=== PATIENT | female | born 1970 | race Caucasian/White ===

== ENCOUNTER 2017-01-19 21:57 | Emergency (ER) | payer MEDICAID ==
[2017-01-19 23:10] LABS: URINE APPEARANCE CLEAR; URINE BILIRUBIN NEGATIVE (NEGATIVE); URINE BLOOD NEGATIVE (NEGATIVE); URINE COLOR YELLOW; URINE GLUCOSE (UA) NEGATIVE (NEGATIVE); URINE KETONE NEGATIVE (NEGATIVE); URINE LEUKOCYTE ESTERASE NEGATIVE (NEGATIVE); URINE NITRITE NEGATIVE (NEGATIVE); URINE PROTEIN NEGATIVE (NEGATIVE); URINE UROBILINOGEN 0.2 E.U./dL (0.20 - 1.00)
[2017-01-19] MEDS ORDERED: KETOROLAC 30 MG/ML VIAL IVP ONE (23:28)
[2017-01-19] MEDS ORDERED: 0.9 % SODIUM CHLORIDE 1,000 ML BAG IV ONE (23:28)
[2017-01-19 23:53] LABS: BASO % 0.4 % (0-6); EOS % 1.7 % (0-6); GRAN % 60.4 % (47-80); HEMATOCRIT 40.3 % (35.0-47.0); HEMOGLOBIN 12.7 gm/dl (11.6-16.0); LYMPH % 32.2 % (16-45); MEAN CELL VOLUME 86.9 fl (81-97); MEAN CORPUSCULAR HEMOGLOBIN 27.4 pg (27-33); MEAN CORPUSCULAR HGB CONC 31.5 g/dl (32-36); MEAN PLATELET VOLUME 10.7 fl (7.4-10.4); MONO % 5.3 % (0-9); PLATELET COUNT 293 K/uL (130-400); RED BLOOD COUNT 4.64 M/uL (3.80-5.40); RED CELL DISTRIBUTION WIDTH 17.9 % (11.5-14.5); WHITE BLOOD COUNT W/O DIFF 11.2 K/uL (4.2-12.2)
[2017-01-20 00:03] LABS: ALB/GLOB RATIO 1.4 (1.1-1.8); ALBUMIN 4.2 gm/dL (3.5-5.0); ALKALINE PHOSPHATASE 85 U/L (38-126); ALT/SGPT 20 U/L (9-52); ANION GAP 9.6 (7-16); AST/SGOT 13 U/L (14-36); BILIRUBIN,TOTAL 0.25 mg/dL (0.2-1.3); BLOOD UREA NITROGEN 9 mg/dL (7-17); CARBON DIOXIDE 25.4 mmol/L (22-30); CREATININE 0.6 mg/dL (0.52-1.04); EST GLOMERULAR FILTRATION RATE > 60 ml/min; GLUCOSE,RANDOM 96 mg/dL (70-110); TOTAL PROTEIN 7.1 gm/dL (6.3-8.2)
[2017-01-20] MEDS ORDERED: HYDROMORPHONE HCL 1 MG/ML CPJ IVP ONE (00:28)
--- NOTE | 2017-01-20 00:45 | Emergency Department Record ---
History of Present Illness - General Chief complaint: Flank Pain Stated complaint: FLANK PAIN Time Seen by Provider: 01/19/17 23:03 Source: Patient Mode of Arrival: Ambulatory Limitations: No limitations - History of Present Illness Initial comments: pt c/o rlq abd pain. she thinks it might be a kidney stone as she has had them before. she has also been told that she has 'intermittant appendicitis' in the past. Onset/Timin -: Hour(s) Radiation: R flank, RLQ, Other Severity: Severe Severity scale (1-10): 8 Quality: Sharp Consistency: Constant Improves with: Other Worsens with: Movement Patient : No Associated Symptoms: Abdominal pain - Related Data Previous Rx's Medication Instructions Recorded Hydrocodone/Acetaminophen [[place] 1 tab PO Q6H PRN #14 tab 01/20/17 5mg/325mg] Allergies Allergy/AdvReac Type Severity Reaction Status Date / Time aspirin AdvReac BRUISING Verified 01/19/17 22:48 Travel Screening - Travel/Exposure Within Last 30 Days Have you traveled within the last 30 days?: No - Travel/Exposure Within Last Year Have you traveled outside the [place] in the last year?: No - Additonal Travel Details Have you been exposed to anyone with a communicable illness?: No Review of Systems Reviewed: No additional complaints except as noted below Constitutional: Reports: As per HPI. Denies: Chills, Fever, Malaise, Night sweats, Weakness, Weight change Eyes: Reports: As per HPI. Denies: Eye discharge, Eye pain, Photophobia, Vision change ENT: Reports: As per HPI. Denies: Congestion, Dental pain, Ear pain, Epistaxis , Hearing loss, Throat pain Respiratory: Reports: As per HPI. Denies: Cough, Dyspnea, Hemoptysis, Stridor, Wheezes Cardiovascular: Reports: As per HPI. Denies: Arrhythmia, Chest pain, Dyspnea on exertion, Edema, Murmurs, Orthopnea, Palpitations, Paroxysmal nocturnal dyspnea, Rheumatic Fever, Syncope Endocrine: Reports: As per HPI. Denies: Fatigue, Heat or cold intolerance, Polydipsia, Polyuria Gastrointestinal: Reports: As per HPI. Denies: Abdominal pain, Constipation, Diarrhea, Hematemesis, Hematochezia, Melena, Nausea, Vomiting Genitourinary: Reports: As per HPI. Denies: Abnormal menses, Discharge, Dyspareunia, Dysuria, Frequency, Hematuria, Incontinence, Retention, Urgency Musculoskeletal: Reports: As per HPI. Denies: Arthralgia, Back pain, Gout, Joint swelling, Myalgia, Neck pain Skin: Reports: As per HPI. Denies: Bruising, Change in color, Change in hair/ nails, Lesions, Pruritus, Rash Neurological: Reports: As per HPI. Denies: Abnormal gait, Confusion, Headache, Numbness, Paresthesias, Seizure, Tingling, Tremors, Vertigo, Weakness Psychiatric: Reports: As per HPI. Denies: Anxiety, Auditory hallucinations, Depression, Homicidal thoughts, Suicidal thoughts, Visual hallucinations Hematological/Lymphatic: Reports: As per HPI. Denies: Anemia, Blood Clots, Easy bleeding, Easy bruising, Swollen glands Past Medical History - SOCIAL HISTORY Smoking Status: Light tobacco smoker (<10/day) Alcohol Use: Rare Drug Use: None - RESPIRATORY Hx Respiratory Disorders: No - CARDIOVASCULAR Hx Cardio Disorders: No - NEURO Hx Neuro Disorders: No - GI Hx GI Disorders: No - Hx Genitourinary Disorders: Yes Hx Kidney Stones: Yes (stents placed) - ENDOCRINE Hx Endocrine Disorders: No - MUSCULOSKELETAL Hx Musculoskeletal Disorders: No - PSYCH Hx Psych Problems: No - HEMATOLOGY/ONCOLOGY Hx Hematology/Oncology Disorders: No Family Medical History Any Significant Family History?: No Physical Exam - General General Appearance: Alert, Oriented x3, Cooperative, Mild distress - Head Head exam: Normal inspection - Eye Eye exam: Normal appearance, PERRL, EOMI Pupils: Normal accommodation - ENT ENT exam: Normal exam, Mucous membranes moist, Normal external ear exam, Normal orophraynx Ear exam: Normal external inspection. negative: External canal tenderness Nasal Exam: Normal inspection. negative: Discharge, Sinus tenderness Mouth exam: Normal external inspection, Tongue normal Teeth exam: Normal inspection. negative: Dental caries Throat exam: Normal inspection. negative: Tonsillar erythema, Tonsillar exudate - Neck Neck exam: Normal inspection, Full ROM. negative: Tenderness - Respiratory Respiratory exam: Normal lung sounds bilaterally. negative: Respiratory distress - Cardiovascular Cardiovascular Exam: Regular rate, Normal rhythm, Normal heart sounds - GI/Abdominal GI/Abdominal exam: Soft, Normal bowel sounds, Tenderness (rlq) - Rectal Rectal exam: Deferred - exam: Deferred - Extremities Extremities exam: Normal inspection, Full ROM, Normal capillary refill. negative: Tenderness - Back Back exam: Reports: Normal inspection, Full ROM. Denies: Muscle spasm, Rash noted, Tenderness - Neurological Neurological exam: Alert, CN II-XII intact, Normal gait, Oriented X3 - Psychiatric Psychiatric exam: Normal affect, Normal mood - Skin Skin exam: Dry, Intact, Normal color, Warm Course Vital Signs 01/19/17 22:49 Temperature 97.5 F L Pulse Rate 69 Respiratory 20 Rate Blood Pressure 156/81 Pulse Ox 98 - Reevaluation(s) Reevaluation #1: 01/20/17 01:10 pt feels better Medical Decision Making - Lab Data Result diagrams: 01/19/17 23:45 01/19/17 23:45 Lab Results 01/19/17 01/19/17 01/19/17 Range/Units 23:11 23:28 23:45 WBC 11.2 (4.2-12.2) K/uL RBC 4.64 (3.80-5.40) M/uL Hgb 12.7 (11.6-16.0) gm/dl Hct 40.3 (35.0-47.0) % MCV 86.9 (81-97) fl MCH 27.4 (27-33) pg MCHC 31.5 L (32-36) g/dl RDW 17.9 H (11.5-14.5) % Plt Count 293 (130-400) K/uL MPV 10.7 H (7.4-10.4) fl Gran % 60.4 (47-80) % Lymphocytes % 32.2 (16-45) % Monocytes % 5.3 (0-9) % Eosinophils % 1.7 (0-6) % Basophils % 0.4 (0-6) % Sodium (136-145) mmol/L Potassium (3.5-5.1) mmol/L Chloride (98-107) mmol/L Carbon Dioxide (22-30) mmol/L Anion Gap (7-16) BUN (7-17) mg/dL Creatinine (0.52-1.04) mg/dL Estimated GFR ml/min Random Glucose (70-110) mg/dL Calcium (8.5-10.1) mg/dL Total Bilirubin (0.2-1.3) mg/dL AST (14-36) U/L ALT (9-52) U/L Alkaline Phosphatase (38-126) U/L Total Protein (6.3-8.2) gm/dL Albumin (3.5-5.0) gm/dL Globulin (1.4-4.8) gm/dL Albumin/Globulin Ratio (1.1-1.8) Urine Color Yellow Cancelled Urine Appearance Clear Cancelled Urine pH 7.5 Cancelled (5.0-8.0) Ur Specific [place] 1.015 Cancelled (1.002-1.030) Urine Protein Negative Cancelled (NEGATIVE) Urine Glucose (UA) Negative Cancelled (NEGATIVE) Urine Clinitest Cancelled Urine Ketones Negative Cancelled (NEGATIVE) Urine Blood Negative Cancelled (NEGATIVE) Urine Nitrite Negative Cancelled (NEGATIVE) Urine Bilirubin Negative Cancelled (NEGATIVE) Urine Ictotest Cancelled Prot Sulfosalicylic Acd Cancelled Urine Urobilinogen 0.2 Cancelled (0.20 - 1.00) E.U./dL Ur Leukocyte Esterase Negative Cancelled (NEGATIVE) 01/19/17 Range/Units 23:45 WBC (4.2-12.2) K/uL RBC (3.80-5.40) M/uL Hgb (11.6-16.0) gm/dl Hct (35.0-47.0) % MCV (81-97) fl MCH (27-33) pg MCHC (32-36) g/dl RDW (11.5-14.5) % Plt Count (130-400) K/uL MPV (7.4-10.4) fl Gran % (47-80) % Lymphocytes % (16-45) % Monocytes % (0-9) % Eosinophils % (0-6) % Basophils % (0-6) % Sodium 140 (136-145) mmol/L Potassium 3.6 (3.5-5.1) mmol/L Chloride 105 (98-107) mmol/L Carbon Dioxide 25.4 (22-30) mmol/L Anion Gap 9.6 (7-16) BUN 9 (7-17) mg/dL Creatinine 0.6 (0.52-1.04) mg/dL Estimated GFR > 60 ml/min Random Glucose 96 (70-110) mg/dL Calcium 8.8 (8.5-10.1) mg/dL Total Bilirubin 0.25 (0.2-1.3) mg/dL AST 13 L (14-36) U/L ALT 20 (9-52) U/L Alkaline Phosphatase 85 (38-126) U/L Total Protein 7.1 (6.3-8.2) gm/dL Albumin 4.2 (3.5-5.0) gm/dL Globulin 2.9 (1.4-4.8) gm/dL Albumin/Globulin Ratio 1.4 (1.1-1.8) Urine Color Urine Appearance Urine pH (5.0-8.0) Ur Specific [place] (1.002-1.030) Urine Protein (NEGATIVE) Urine Glucose (UA) (NEGATIVE) Urine Clinitest Urine Ketones (NEGATIVE) Urine Blood (NEGATIVE) Urine Nitrite (NEGATIVE) Urine Bilirubin (NEGATIVE) Urine Ictotest Prot Sulfosalicylic Acd Urine Urobilinogen (0.20 - 1.00) E.U./dL Ur Leukocyte Esterase (NEGATIVE) Disposition Disposition: Discharge Clinical Impression: Renal lithiasis Disposition: Home, Self-Care Condition: (1) Good Instructions: Kidney Stones (ED) Additional Instructions: recheck in 24 hours if still having right lower abdominal pain. follow up with urologist. return sooner if worse Prescriptions: Hydrocodone/Acetaminophen [[place] 5mg/325mg] 1 tab PO Q6H PRN #14 tab PRN Reason: Pain - General Forms: Patient Portal Access
== END 2017-01-20 01:35 | disposition home or self-care (01) ==
LOC: ER 21:57
DX: N20.1 Calculus of ureter (principal); Z87.442 Personal history of urinary calculi
CPT/HCPCS: 99284 ×2; 96374; 96375; 85025; 80053; 81003; 74176; J1885; J1170; J7030

== ENCOUNTER 2017-01-26 18:47 | Emergency (ER) | payer MEDICAID ==
[2017-01-26 19:22] LABS: URINE APPEARANCE CLEAR; URINE BILIRUBIN NEGATIVE (NEGATIVE); URINE BLOOD NEGATIVE (NEGATIVE); URINE COLOR YELLOW; URINE GLUCOSE (UA) NEGATIVE (NEGATIVE); URINE KETONE NEGATIVE (NEGATIVE); URINE LEUKOCYTE ESTERASE NEGATIVE (NEGATIVE); URINE NITRITE NEGATIVE (NEGATIVE); URINE PROTEIN NEGATIVE (NEGATIVE); URINE UROBILINOGEN 0.2 E.U./dL (0.20 - 1.00)
--- NOTE | 2017-01-26 19:24 | Emergency Department Record ---
History of Present Illness - General Chief complaint: Flank Pain Stated complaint: SIDE PAIN Time Seen by Provider: 01/26/17 19:14 Source: Patient Mode of Arrival: Ambulatory Limitations: No limitations - History of Present Illness Initial comments: 46 yo female presents with right sided pain for over one week. She states the pain is ONLY on the right. It is upper right quadrant. She has had her gallbladder removed already. No fever. No rash. No cough or chest pain. The pain radiates to the right flank. She was told she had a LEFT ureteral stone on 01/19/17. No pain on the left. No diarrhea. The gallbladder is her only surgery. No PCP. MD Complaint: Other (right side pain) -: Days(s) (8-10) Location: Other (RUQ) Severity: Moderate Quality: Aching, Sharp Consistency: Constant Improves with: None Worsens with: Other (Moving around) Associated Symptoms: Abdominal pain - Related Data Previous Rx's Medication Instructions Recorded Hydrocodone/Acetaminophen [[place] 1 tab PO Q6H PRN #14 tab 01/20/17 5mg/325mg] Hydrocodone/Acetaminophen [[place] 1 tab PO BID PRN #15 tab 01/26/17 7.5mg/325mg] Tamsulosin HCl [Flomax] 0.4 mg PO DAILY #10 cap.er.24h 01/26/17 Allergies Allergy/AdvReac Type Severity Reaction Status Date / Time aspirin AdvReac BRUISING Verified 01/19/17 22:48 Review of Systems Constitutional: Denies: Chills, Fever, Malaise, Weakness Eyes: Denies: Eye discharge, Eye pain ENT: Denies: Congestion, Throat pain Respiratory: Denies: Cough Cardiovascular: Denies: Chest pain, Palpitations, Syncope Endocrine: Denies: Fatigue Gastrointestinal: Reports: As per HPI, Abdominal pain. Denies: Diarrhea, Vomiting Genitourinary: Reports: Hematuria. Denies: Dyspareunia, Dysuria Musculoskeletal: Reports: Back pain. Denies: Arthralgia, Myalgia, Neck pain Skin: Denies: Bruising, Change in color, Rash Neurological: Denies: Confusion, Headache Psychiatric: Denies: Anxiety Hematological/Lymphatic: Denies: Blood Clots, Easy bleeding, Easy bruising, Swollen glands Past Medical History - SOCIAL HISTORY Smoking Status: Light tobacco smoker (<10/day) Drug Use: None - RESPIRATORY Hx Respiratory Disorders: No - CARDIOVASCULAR Hx Cardio Disorders: No - NEURO Hx Neuro Disorders: No - GI Hx GI Disorders: No - Hx Genitourinary Disorders: Yes Hx Kidney Stones: Yes (stents placed) - ENDOCRINE Hx Endocrine Disorders: No - MUSCULOSKELETAL Hx Musculoskeletal Disorders: No - PSYCH Hx Psych Problems: No - HEMATOLOGY/ONCOLOGY Hx Hematology/Oncology Disorders: No Physical Exam - General General Appearance: Alert, Oriented x3, Cooperative, No acute distress Limitations: No limitations - Head Head exam: Atraumatic, Normal inspection - Eye Eye exam: Normal appearance, PERRL. negative: Conjunctival injection, Periorbital swelling - ENT ENT exam: Normal exam Ear exam: Normal external inspection Nasal Exam: Normal inspection Mouth exam: Normal external inspection Teeth exam: Normal inspection Throat exam: Normal inspection - Neck Neck exam: Normal inspection, Full ROM. negative: Tenderness - Respiratory Respiratory exam: Normal lung sounds bilaterally. negative: Respiratory distress - Cardiovascular Cardiovascular Exam: Regular rate, Normal rhythm, Normal heart sounds - GI/Abdominal GI/Abdominal exam: Soft, Tenderness (tender right flank, RUQ, soft, no distension) - Rectal Rectal exam: Deferred - exam: Deferred - Extremities Extremities exam: Normal inspection, Full ROM, Normal capillary refill. negative: Tenderness - Back Back exam: Reports: Normal inspection, Full ROM. Denies: Muscle spasm, Rash noted, Tenderness - Neurological Neurological exam: Alert, Normal gait, Oriented X3 - Psychiatric Psychiatric exam: Normal affect, Normal mood - Skin Skin exam: Dry, Intact, Normal color, Warm Course - Reevaluation(s) Reevaluation #1: EMR reviewed. CT reviewed form 01/19. 5mm LEFT ureteral stone. Normal appendix 01/26/17 19:26 Reevaluation #2: The CBC and UA were reviewed. NO acute changes. MAPS reviewed. One prior Narcotic filled. 01/26/17 19:45 01/26/17 19:48 Reevaluation #3: KUB reviewed 5mm calcification persists No other changes. She will be referred for urology 01/26/17 20:10 01/26/17 20:10 - Consultations Consultation #1: The patient's pain is on the right. She does not have a gallbladder. She had a negative CT in the last one week. Her pain is only on the one side but she has a distal left stone still on the KUB. She will be provided analgesia, referred for primary care and urology. Her labs were stable or slightly improved. No UTI. Medical Decision Making - Lab Data Result diagrams: 01/26/17 19:25 01/26/17 19:25 Disposition Disposition: Discharge Clinical Impression: Right upper quadrant pain, Renal lithiasis Disposition: Home, Self-Care Condition: (1) Good Instructions: Flank Pain (ED), Kidney Stones (ED) Additional Instructions: Call tomorrow for the specialty clinic follow up with urology for your kidney stone Call tomorrow for a family doctor appointment at [facility] Return if you have fever, vomiting or concerns Prescriptions: Tamsulosin HCl [Flomax] 0.4 mg PO DAILY #10 cap.er.24h Hydrocodone/Acetaminophen [[place] 7.5mg/325mg] 1 tab PO BID PRN #15 tab PRN Reason: Pain - General Referrals: WOLF BARNEY M.D. [MEDICAL DOCTOR] - JETT CUEVAS M.D. [MEDICAL DOCTOR] - [facility] Specialty Clinics [Provider Group] Forms: Patient Portal Access Time of Disposition: 20:13
[2017-01-26] MEDS ORDERED: KETOROLAC 30 MG/ML VIAL IVP ONE (19:30)
[2017-01-26] MEDS ORDERED: DIAZEPAM 5 MG/1 ML TUBX IVP ONE (19:30)
[2017-01-26 19:43] LABS: BASO % 0.4 % (0-6); EOS % 1.3 % (0-6); GRAN % 60.9 % (47-80); HEMATOCRIT 41.7 % (35.0-47.0); HEMOGLOBIN 13.3 gm/dl (11.6-16.0); LYMPH % 32.6 % (16-45); MEAN CELL VOLUME 85.5 fl (81-97); MEAN CORPUSCULAR HEMOGLOBIN 27.3 pg (27-33); MEAN CORPUSCULAR HGB CONC 31.9 g/dl (32-36); MEAN PLATELET VOLUME 10.7 fl (7.4-10.4); MONO % 4.8 % (0-9); PLATELET COUNT 289 K/uL (130-400); RED BLOOD COUNT 4.88 M/uL (3.80-5.40); RED CELL DISTRIBUTION WIDTH 17.4 % (11.5-14.5)
[2017-01-26 19:52] LABS: ALB/GLOB RATIO 1.5 (1.1-1.8); ALBUMIN 4.5 gm/dL (3.5-5.0); ALKALINE PHOSPHATASE 82 U/L (38-126); ALT/SGPT 19 U/L (9-52); ANION GAP 10.4 (7-16); AST/SGOT 16 U/L (14-36); BILIRUBIN,TOTAL 0.38 mg/dL (0.2-1.3); BLOOD UREA NITROGEN 8 mg/dL (7-17); CARBON DIOXIDE 22.6 mmol/L (22-30); CREATININE 0.6 mg/dL (0.52-1.04); EST GLOMERULAR FILTRATION RATE > 60 ml/min; GLUCOSE,RANDOM 85 mg/dL (70-110); TOTAL PROTEIN 7.5 gm/dL (6.3-8.2)
== END 2017-01-26 20:28 | disposition home or self-care (01) ==
LOC: ER 18:47
DX: N20.0 Calculus of kidney (principal); R10.11 Right upper quadrant pain; Z87.442 Personal history of urinary calculi
CPT/HCPCS: 99284 ×2; 96374; 96375; 85025; 80053; 81003; 74000; J1885; J3360

== ENCOUNTER 2017-02-10 23:04 | Emergency (ER) | payer MEDICAID ==
[2017-02-10] MEDS ORDERED: KETOROLAC 30 MG/ML VIAL IVP ONE (23:29)
[2017-02-10] MEDS ORDERED: 0.9 % SODIUM CHLORIDE 1000ML 500 ML IV SCH (23:30)
[2017-02-10 23:35] LABS: BASO % 0.6 % (0-6); EOS % 1.9 % (0-6); GRAN % 57.4 % (47-80); HEMATOCRIT 42.2 % (35.0-47.0); HEMOGLOBIN 13.9 gm/dl (11.6-16.0); LYMPH % 36.1 % (16-45); MEAN CELL VOLUME 87.2 fl (81-97); MEAN CORPUSCULAR HEMOGLOBIN 28.7 pg (27-33); MEAN CORPUSCULAR HGB CONC 32.9 g/dl (32-36); MEAN PLATELET VOLUME 10.7 fl (7.4-10.4); PLATELET COUNT 332 K/uL (130-400); RED BLOOD COUNT 4.84 M/uL (3.80-5.40); WHITE BLOOD COUNT W/O DIFF 10.9 K/uL (4.2-12.2)
--- NOTE | 2017-02-10 23:35 | Emergency Department Record ---
History of Present Illness - General Chief complaint: Flank Pain Stated complaint: FLANK PAIN Time Seen by Provider: 02/10/17 23:05 Source: Patient Mode of Arrival: Ambulatory Limitations: No limitations - History of Present Illness Initial comments: 46 yo female returns to ED for evaluation of bilateral flank pain that has been relatively constant for since being evaluated on 01/26 for flank pain symptoms. Patient reports previous sympotms related to kidney stones. Patient denies fevers, chills, nausea, or vomiting symptoms. Patient reports that she was referred to Dr. Begum but was unable to see him due to her insurance. MD Complaint: Other (flank pain) Onset/Timin -: Week(s) Severity: Moderate Severity scale (1-10): 8 Quality: Other Consistency: Constant Improves with: None Worsens with: Movement, Urination LMP Date: 01/21/17 Gestational Age (wks) based on LMP: 3 Associated Symptoms: Other - Related Data Previous Rx's Medication Instructions Recorded Hydrocodone/Acetaminophen [[place] 1 tab PO Q6H PRN #14 tab 01/20/17 5mg/325mg] Hydrocodone/Acetaminophen [[place] 1 tab PO BID PRN #15 tab 01/26/17 7.5mg/325mg] Tamsulosin HCl [Flomax] 0.4 mg PO DAILY #10 cap.er.24h 01/26/17 Hyoscyamine Sulfate [Levsin-Sl] 0.25 mg SL Q8H PRN #20 tab.subl 02/11/17 Ibuprofen [Motrin 600Mg] 600 mg PO Q6H #30 tablet 02/11/17 Allergies Allergy/AdvReac Type Severity Reaction Status Date / Time aspirin AdvReac BRUISING Verified 01/19/17 22:48 Travel Screening - Travel/Exposure Within Last 30 Days Have you traveled within the last 30 days?: No - Travel/Exposure Within Last Year Have you traveled outside the [place] in the last year?: No - Additonal Travel Details Have you been exposed to anyone with a communicable illness?: No - Travel Symptoms Symptom Screening: None Review of Systems Constitutional: Denies: Chills, Fever, Malaise, Night sweats Eyes: Denies: Eye discharge, Eye pain ENT: Denies: Congestion, Ear pain, Epistaxis Respiratory: Denies: Cough, Dyspnea Cardiovascular: Denies: Chest pain, Dyspnea on exertion Endocrine: Denies: Fatigue, Heat or cold intolerance Gastrointestinal: Denies: Abdominal pain, Constipation, Nausea, Vomiting Genitourinary: Denies: Dysuria, Frequency, Hematuria, Incontinence Musculoskeletal: Reports: Back pain. Denies: Gout, Joint swelling Skin: Denies: Bruising, Change in color Neurological: Denies: Abnormal gait, Confusion, Headache, Seizure Psychiatric: Denies: Anxiety Hematological/Lymphatic: Denies: Anemia, Blood Clots Past Medical History - SOCIAL HISTORY Smoking Status: Light tobacco smoker (<10/day) Alcohol Use: None Drug Use: None - RESPIRATORY Hx Respiratory Disorders: No - CARDIOVASCULAR Hx Cardio Disorders: No - NEURO Hx Neuro Disorders: No - GI Hx GI Disorders: No - Hx Genitourinary Disorders: Yes Hx Kidney Stones: Yes (stents placed and since removed) - ENDOCRINE Hx Endocrine Disorders: No - MUSCULOSKELETAL Hx Musculoskeletal Disorders: No - PSYCH Hx Psych Problems: No - HEMATOLOGY/ONCOLOGY Hx Hematology/Oncology Disorders: No Family Medical History Any Significant Family History?: No Family Hx Comment (NOT TO BE USED IN PLACE OF ITEMS BELOW): denies Physical Exam - General General Appearance: Alert, Oriented x3, Cooperative, Moderate distress Limitations: No limitations - Head Head exam: Atraumatic, Normocephalic, Normal inspection Head exam detail: negative: Abrasion, Contusion, Sabillon's sign, General tenderness, Hematoma, Laceration - Eye Eye exam: Normal appearance. negative: Conjunctival injection, Periorbital swelling, Periorbital tenderness, Scleral icterus - ENT Ear exam: negative: Auricular hematoma, Auricular trauma Nasal Exam: negative: Active bleeding, Discharge, Dried blood, Foreign body Mouth exam: negative: Drooling, Laceration, Muffled voice, Tongue elevation - Neck Neck exam: Normal inspection. negative: Meningismus, Tenderness - Respiratory Respiratory exam: Normal lung sounds bilaterally. negative: Rales, Respiratory distress, Rhonchi, Stridor - Cardiovascular Cardiovascular Exam: Regular rate, Normal rhythm, Normal heart sounds - GI/Abdominal GI/Abdominal exam: Soft, Tenderness (Mild TTP RUQ, no rebound or guarding present, no peritoneal signs on examination.). negative: Rebound, Rigid - Rectal Rectal exam: Deferred - exam: Deferred - Extremities Extremities exam: Normal inspection. negative: Pedal edema, Tenderness - Back Back exam: Reports: CVA tenderness (R), CVA tenderness (L) - Neurological Neurological exam: Alert, Normal gait, Oriented X3 - Psychiatric Psychiatric exam: Normal affect, Normal mood - Skin Skin exam: Normal color. negative: Abrasion Type of lesion: negative: abrasion Course Vital Signs 02/10/17 23:06 Temperature 97.6 F Pulse Rate 77 Respiratory 20 Rate Blood Pressure 167/83 Pulse Ox 100 - Reevaluation(s) Reevaluation #1: 02/10/17 23:36 CT Abdomen and Pelvis: 01/19/17 Post-op cholecystectomy 1.9 cm mass right lobe of the liver No hydronephrosis or internal calculi present. 5.3 mm calcification along the posterior aspect of the urinary bladder, no sign of obstruction Negative appendix 01/26/17: Abdomen series: 5 mm calculus corresponding to the previously described left UVJ/Urinary bladder calculus on recent CT imaging. UA reviewed from 01/26/17 and is negative for hematuria or infection. Reevaluation #2: 02/10/17 23:43 Patient declined Toradol stating "it never works for me". Valium ordered IV per patient request. Reevaluation #3: 02/10/17 23:49 Labs reviewed, UA is negative for blood or infection. Will reassess following Valium administration. Reevaluation #4: 02/11/17 00:09 Discussed with patient all results, offered admission for possible surgical consultation as the etiology of her symptoms has not been clearly identified given her previous imaging results and UA results. Patient is requesting repeat imaging to further investigate her symptoms. Patient was counseled that repeat imaging is unlikely to be of benefit given that her labs and UA are again within normal limits. Will re-order imaging for patient reassurance and reassess. Reevaluation #5: 02/11/17 01:13 Patient was updated on CT imaging results (unchanged from previous), offered admission for further evaluation and possible surgical consultation as I do not feel the patient's symptoms are related to the 5 mm calculus NEAR the left UVJ, particularly as the patient's symptoms are all right sided. Patient declined admission as she has a son at home that is scheduled for an outpatient surgery in 2 days. Will refer the patient to the [facility] for further evaluation. Medical Decision Making - Lab Data Result diagrams: 02/10/17 23:02/10/17 23:20 Disposition Disposition: Discharge Clinical Impression: Chronic abdominal pain Disposition: Home, Self-Care Condition: (2) Stable Instructions: Chronic Pain (ED) Additional Instructions: Return to ED if your symptoms worsen or if you have any concerns. Levsin and Motrin 800 mg as directed. Follow-up with Dr. Robison in 1-3 days as directed. Prescriptions: Hyoscyamine Sulfate [Levsin-Sl] 0.25 mg SL Q8H PRN #20 tab.subl PRN Reason: Abdominal Pain Ibuprofen [Motrin 600Mg] 600 mg PO Q6H #30 tablet Referrals: WOLF BARNEY M.D. [MEDICAL DOCTOR] - Forms: Patient Portal Access Time of Disposition: :17
[2017-02-10 23:38] LABS: URINE APPEARANCE CLEAR; URINE BILIRUBIN NEGATIVE (NEGATIVE); URINE BLOOD NEGATIVE (NEGATIVE); URINE COLOR YELLOW; URINE GLUCOSE (UA) NEGATIVE (NEGATIVE); URINE KETONE NEGATIVE (NEGATIVE); URINE LEUKOCYTE ESTERASE NEGATIVE (NEGATIVE); URINE NITRITE NEGATIVE (NEGATIVE); URINE PROTEIN NEGATIVE (NEGATIVE); URINE UROBILINOGEN 0.2 E.U./dL (0.20 - 1.00)
[2017-02-10] MEDS ORDERED: DIAZEPAM 5 MG/1 ML TUBX IVP ONE (23:42)
[2017-02-10 23:47] LABS: ALB/GLOB RATIO 1.6 (1.1-1.8); ALBUMIN 4.7 gm/dL (3.5-5.0); ALKALINE PHOSPHATASE 96 U/L (38-126); ALT/SGPT 16 U/L (9-52); ANION GAP 11.3 (7-16); AST/SGOT 18 U/L (14-36); BILIRUBIN,TOTAL 0.38 mg/dL (0.2-1.3); BLOOD UREA NITROGEN 13 mg/dL (7-17); CARBON DIOXIDE 26.7 mmol/L (22-30); CREATININE 0.7 mg/dL (0.52-1.04); EST GLOMERULAR FILTRATION RATE > 60 ml/min; GLUCOSE,RANDOM 153 mg/dL (70-110); LIPASE 158 U/L (23-300); TOTAL PROTEIN 7.7 gm/dL (6.3-8.2)
== END 2017-02-11 01:31 | disposition home or self-care (01) ==
LOC: ER 23:04
DX: G89.29 Other chronic pain (principal); R10.11 Right upper quadrant pain; Z87.442 Personal history of urinary calculi
CPT/HCPCS: 99284 ×2; 96374; 96375; 83690; 85025; 80053; 81003; 74177; Q9967; J1885; J3360; J7030

== ENCOUNTER 2017-11-01 02:42 | Emergency (ER) | payer MEDICAID ==
--- NOTE | 2017-11-01 03:03 | Emergency Department Record ---
History of Present Illness - General Chief Complaint: Fall Injury Stated Complaint: FALL Time Seen by Provider: 11/01/17 02:45 Source: Patient Mode of Arrival: Ambulatory Limitations: No limitations - History of Present Illness Initial Comments: 47 yo female presents to ED for evaluation of pain to the posterior left shoulder and posterior left hip following a fall yesterday morning. Patient reports that her pain symptoms did worsen until several hours ago, was able to stand on her own and ambulate without difficulty. Patient denies injury to the head or neck, and denies health problems at her baseline. Patient reports taking advil that "took the edge off". Complaint: Fall Onset/Timin -: Hour(s) Fall From: Down stairs (#) When Fall Occurred: # Days [employer] Fall Witnessed: No Place Fall Occurred: Home Loss of Consciousness: None Prolonged Down Time?: No Symptoms Prior to Fall: None Location: Pelvis Location - Extremities: Left: Shoulder Severity: Moderate Severity scale (1-10): 9 Quality: Stabbing - [place] Coma Scale Eye Response: (4) Open spontaneously Motor Response: (6) Obeys commands Verbal Response: (5) Oriented Hira Total: 15 - Related Data Previous Rx's Medication Instructions Recorded Naproxen [Naprosyn] 500 mg PO Q12H #30 tab. 11/01/17 Allergies Allergy/AdvReac Type Severity Reaction Status Date / Time aspirin AdvReac BRUISING Unverified 10/06/17 13:38 Travel Screening - Travel/Exposure Within Last 30 Days Have you traveled within the last 30 days?: No - Travel Symptoms Symptom Screening: None Review of Systems Constitutional: Denies: Chills, Fever, Malaise, Night sweats Eyes: Denies: Eye discharge, Eye pain ENT: Denies: Congestion, Ear pain, Epistaxis Respiratory: Denies: Cough, Dyspnea Cardiovascular: Denies: Chest pain, Dyspnea on exertion Endocrine: Denies: Fatigue, Heat or cold intolerance Gastrointestinal: Denies: Abdominal pain, Nausea, Vomiting Genitourinary: Denies: Incontinence, Retention Musculoskeletal: Reports: Arthralgia. Denies: Back pain, Gout, Joint swelling Skin: Denies: Bruising, Change in color Neurological: Denies: Abnormal gait, Confusion, Headache, Seizure Psychiatric: Denies: Anxiety Hematological/Lymphatic: Denies: Anemia, Blood Clots Past Medical History - SOCIAL HISTORY Smoking Status: Light tobacco smoker (<10/day) Alcohol Use: None Drug Use: None - RESPIRATORY Hx Respiratory Disorders: No - CARDIOVASCULAR Hx Cardio Disorders: No - NEURO Hx Neuro Disorders: No - GI Hx GI Disorders: No - Hx Genitourinary Disorders: Yes Hx Kidney Stones: Yes (stents placed and since removed) - ENDOCRINE Hx Endocrine Disorders: No - MUSCULOSKELETAL Hx Musculoskeletal Disorders: No - PSYCH Hx Psych Problems: No - HEMATOLOGY/ONCOLOGY Hx Hematology/Oncology Disorders: No Family Medical History Any Significant Family History?: No Family Hx Comment (NOT TO BE USED IN PLACE OF ITEMS BELOW): denies Physical Exam - General General Appearance: Alert, Oriented x3, Cooperative, Mild distress Limitations: No limitations - Head Head exam: Atraumatic, Normocephalic, Normal inspection Head exam detail: negative: Abrasion, Contusion, Sabillon's sign, General tenderness, Hematoma, Laceration - Eye Eye exam: Normal appearance. negative: Conjunctival injection, Periorbital swelling, Periorbital tenderness, Scleral icterus - ENT Ear exam: negative: Auricular hematoma, Auricular trauma Nasal Exam: negative: Active bleeding, Discharge, Dried blood, Foreign body Mouth exam: negative: Drooling, Laceration, Muffled voice, Tongue elevation - Neck Neck exam: Normal inspection. negative: Meningismus, Tenderness - Respiratory Respiratory exam: Normal lung sounds bilaterally. negative: Rales, Respiratory distress, Rhonchi, Stridor - Cardiovascular Cardiovascular Exam: Regular rate, Normal rhythm, Normal heart sounds - GI/Abdominal GI/Abdominal exam: Soft. negative: Rebound, Rigid, Tenderness - Rectal Rectal exam: Deferred - exam: Deferred - Extremities Extremities exam: Tenderness, Other (TTP over the posterior left shoulder, FROM on examination spontaneously. 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 TTP over the left pelvis posteriorly, no pain over the lateral hip and pelvis, ambulates and bears weight normally on examination.). negative: Calf tenderness , Pedal edema - Back Back exam: Denies: CVA tenderness (R), CVA tenderness (L) - Neurological Neurological exam: Alert, Oriented X3 - Psychiatric Psychiatric exam: Normal affect, Normal mood - Skin Skin exam: Normal color. negative: Abrasion Type of lesion: negative: abrasion Course Vital Signs 11/01/17 02:48 Temperature 98.6 F Pulse Rate [ 69 Pulse Ox Probe] Respiratory 20 Rate Blood Pressure 147/81 [Right Arm] Pulse Ox 100 - Reevaluation(s) Reevaluation #1: 11/01/17 03:21 Left shoulder: No acute process Left hip/pelvis: No acute fracture identified Patient was updated on all results, clinical examination and radiographs appear c/w contusions. Will treat with Naprosyn for the next several days with instructions for follow-up with her PCP in 3-5 days as directed. Patient agrees with the plan of care as discussed. Disposition Disposition: Discharge Clinical Impression: Multiple contusions Fall Qualifiers: Encounter type: initial encounter Qualified Code(s): W19.XXXA - Unspecified fall, initial encounter Disposition: Home, Self-Care Condition: (2) Stable Instructions: Contusion in Adults (ED) Additional Instructions: Return to ED if your symptoms worsen or if you have any concerns. Naprosyn as directed. Follow-up with your family doctor in 3-5 days as directed. Prescriptions: Naproxen [Naprosyn] 500 mg PO Q12H #30 tab.dr Forms: Patient Portal Access Time of Disposition: 03:21 Quality - Quality Measures Quality Measures: N/A - Blood Pressure Screening Does Patient Have Any of the Following: No Blood Pressure Classification: Pre-Hypertensive BP Reading Systolic Measurement: 147 Diastolic Measurement: 81 Screening for High Blood Pressure: < Pre-Hypertensive BP, F/U Documented > [ G8950] Pre-Hypertensive Follow-up Interventions: Referral to alternative/primary care provider.
[2017-11-01] MEDS ORDERED: NAPROXEN 250 MG TABLET PO ONE (03:24)
--- NOTE | 2017-11-02 07:51 | RADIOLOGY REPORT ---
EXAM: LEFT HIP AND PELVIS THREE VIEWS HISTORY: PATIENT HAS A HISTORY OF FALL. TECHNIQUE: AP view of the pelvis and two views of the left hip are provided along with the comparison study of the abdomen and pelvis dated 02/11/17. FINDINGS: There is no radiographic evidence of a fracture or dislocation of the left hip. No significant soft tissue abnormalities are visualized. Alignment of the left hip is anatomic. The visualized pelvis is unremarkable. IMPRESSION: NO RADIOGRAPHIC EVIDENCE OF AN ACUTE PROCESS INVOLVING THE LEFT HIP. JOB NUMBER: [id number] [facility]
--- NOTE | 2017-11-02 07:53 | RADIOLOGY REPORT ---
EXAM: LEFT SHOULDER, THREE VIEWS HISTORY: PATIENT HAS A HISTORY OF FALL. TECHNIQUE: Three views of the left shoulder are provided without comparison examinations. FINDINGS: There is no radiographic evidence of a fracture or dislocation of the left shoulder. No significant soft tissue abnormalities are visualized. The acromioclavicular joint is within normal limits. The visualized left upper hemithorax appears unremarkable. IMPRESSION: NO RADIOGRAPHIC EVIDENCE OF AN ACUTE PROCESS INVOLVING THE LEFT SHOULDER. JOB NUMBER: [id number] [facility]
== END 2017-11-01 03:32 | disposition home or self-care (01) ==
LOC: ER 02:42
DX: S40.012A Contusion of left shoulder, initial encounter (principal); S70.02XA Contusion of left hip, initial encounter; W10.9XXA Fall (on) (from) unspecified stairs and steps, initial encounter; Y92.009 Unspecified place in unspecified non-institutional (private) residence as the place of occurrence of the external cause; F17.210 Nicotine dependence, cigarettes, uncomplicated
CPT/HCPCS: 99283; 99284

== ENCOUNTER 2018-04-21 23:01 | Emergency (ER) | payer MEDICAID ==
--- NOTE | 2018-04-21 23:17 | Emergency Department Record ---
History of Present Illness - General Chief Complaint: Laceration(s) Stated Complaint: LACERATION Time Seen by Provider: 04/21/18 23:11 Source: Patient Mode of Arrival: Ambulatory Limitations: No limitations - History of Present Illness Initial Commments: 47 yo female presents to ED for evaluation of a laceration sustained while cutting meat to the tip of the left ring finger. Patient reports bleeding and a "flap" laceration to the distal tip, denies numbness, tingling, or difficulty flexing/extending the digit. Patient denies health problems at her baseline other than chronic bronchitis, and denies anticoagulation use. Patient's tetanus is 8-9 years old. Onset/Timin -: Minutes(s) Extremity Location: Left: Hand Place: Work Context: Accidental Associated Symptoms: Loss of feeling/numbness - [place] Coma Scale Eye Response: (4) Open spontaneously Motor Response: (6) Obeys commands Verbal Response: (5) Oriented Hira Total: 15 - Related Data Patient Tetanus UTD (within 5 yrs): No Previous Rx's Medication Instructions Recorded Cephalexin [Keflex] 500 mg PO QID #39 cap 04/21/18 Allergies Allergy/AdvReac Type Severity Reaction Status Date / Time aspirin AdvReac BRUISING, Verified 04/21/18 23:04 bloody noses Travel Screening - Travel/Exposure Within Last 30 Days Have you traveled within the last 30 days?: No - Travel Symptoms Symptom Screening: None Review of Systems Constitutional: Denies: Chills, Fever, Malaise, Night sweats Eyes: Denies: Eye discharge, Eye pain ENT: Denies: Congestion, Ear pain, Epistaxis Respiratory: Denies: Cough, Dyspnea Cardiovascular: Denies: Chest pain, Dyspnea on exertion Endocrine: Denies: Fatigue, Heat or cold intolerance Gastrointestinal: Denies: Abdominal pain, Nausea, Vomiting Genitourinary: Denies: Incontinence, Retention Musculoskeletal: Denies: Arthralgia, Back pain, Gout, Joint swelling Skin: Reports: Other (Finger laceration). Denies: Bruising, Change in color Neurological: Denies: Abnormal gait, Confusion, Headache, Seizure Psychiatric: Denies: Anxiety Hematological/Lymphatic: Denies: Anemia, Blood Clots Past Medical History - SOCIAL HISTORY Smoking Status: Light tobacco smoker (<10/day) - RESPIRATORY Hx Respiratory Disorders: Yes Hx Asthma: Yes Hx Bronchitis: Yes - CARDIOVASCULAR Hx Cardio Disorders: No - NEURO Hx Neuro Disorders: No - GI Hx GI Disorders: No - Hx Genitourinary Disorders: Yes Hx Kidney Stones: Yes (stents placed and since removed) - ENDOCRINE Hx Endocrine Disorders: No - MUSCULOSKELETAL Hx Musculoskeletal Disorders: No - PSYCH Hx Psych Problems: Yes Hx Anxiety: Yes Hx Depression: Yes - HEMATOLOGY/ONCOLOGY Hx Hematology/Oncology Disorders: No Family Medical History Any Significant Family History?: No Family Hx Comment (NOT TO BE USED IN PLACE OF ITEMS BELOW): denies Physical Exam - General General Appearance: Alert, Oriented x3, Cooperative, Moderate distress Limitations: No limitations - Head Head exam: Atraumatic, Normocephalic, Normal inspection Head exam detail: negative: Abrasion, Contusion, Sabillon's sign, General tenderness, Hematoma, Laceration - Eye Eye exam: Normal appearance. negative: Conjunctival injection, Periorbital swelling, Periorbital tenderness, Scleral icterus - ENT Ear exam: negative: Auricular hematoma, Auricular trauma Nasal Exam: negative: Active bleeding, Discharge, Dried blood, Foreign body Mouth exam: negative: Drooling, Laceration, Muffled voice, Tongue elevation - Neck Neck exam: Normal inspection. negative: Meningismus, Tenderness - Respiratory Respiratory exam: Normal lung sounds bilaterally. negative: Rales, Respiratory distress, Rhonchi, Stridor - Cardiovascular Cardiovascular Exam: Regular rate, Normal rhythm, Normal heart sounds - GI/Abdominal GI/Abdominal exam: Soft. negative: Rebound, Rigid, Tenderness - Rectal Rectal exam: Deferred - exam: Deferred - Extremities Extremities exam: Tenderness, Other (2.0 laceration to the distal tip of the left index finger, no FB present, no tendon laceration is present.). negative: Calf tenderness, Pedal edema - Back Back exam: Denies: CVA tenderness (R), CVA tenderness (L) - Neurological Neurological exam: Alert, Normal gait, Oriented X3 - Psychiatric Psychiatric exam: Normal affect, Normal mood - Skin Skin exam: Normal color. negative: Abrasion Type of lesion: negative: abrasion Course Vital Signs 04/21/18 23:06 Temperature 98.5 F Pulse Rate [ 72 Pulse Ox Probe] Respiratory 24 Rate Blood Pressure 164/94 [Right Arm] Pulse Ox 97 - Reevaluation(s) Reevaluation #1: 07/18/18 23:16 2.0 cm laceration to the medial tip of the left index finger, bleeding controlled. Wound was cleaned and prepped in sterile fashion, no residual FB identified on examination. No tendon injury is identified on examination through all blanc. Wound was anesthetized with (1.0 mL of 0.25% Sensorcaine with good anesthesia, and the laceration was repaired with 4-0 Prolene (#5) sutures in interrupted fashion. Patient tolerated the procedure well without complications. Keflex was initiated prior to discharge, and the patient's tetanus status was updated. All questions were answered, and the patient appears stable for discharge at this time. Disposition Disposition: Discharge Clinical Impression: Finger laceration Qualifiers: Encounter type: initial encounter Finger: ring finger Damage to nail status: without damage Foreign body presence: without foreign body Laterality: left Qualified Code(s): S61.215A - Laceration without foreign body of left ring finger without damage to nail, initial encounter Disposition: Home, Self-Care Condition: (2) Stable Instructions: Laceration (ED) Additional Instructions: Return to ED if your symptoms worsen or if you have any concerns. Keflex as directed. Sutures out in 10-14 days. Follow-up with your family doctor in 3-5 days as directed. Prescriptions: Cephalexin [Keflex] 500 mg PO QID #39 cap Forms: Patient Portal Access Time of Disposition: 23:29 Quality - Quality Measures Quality Measures: N/A - Blood Pressure Screening Does Patient Have Any of the Following: No Blood Pressure Classification: Hypertensive Reading Systolic Measurement: 164 Diastolic Measurement: 94 Screening for High Blood Pressure: < First Hypertensive BP, F/U Documented > [ G8950] First Hypertensive Follow-up Interventions: Referral to alternative/primary care provider.
[2018-04-21] MEDS: Diph,Pert(Acell),Tet Vac 0.5 ML SYR IM ONE (23:29)
[2018-04-21] MEDS: CEPHALEXIN 500 MG CAPSULE PO STA (23:33)
[2018-04-21] MEDS: IBUPROFEN 600 MG TABLET PO ONE (23:34)
== END 2018-04-21 23:43 | disposition home or self-care (01) ==
LOC: ER 23:01
DX: S61.211A Laceration without foreign body of left index finger without damage to nail, initial encounter (principal); W26.0XXA Contact with knife, initial encounter; F17.210 Nicotine dependence, cigarettes, uncomplicated; Y93.G1 Activity, food preparation and clean up; Y92.511 Restaurant or cafe as the place of occurrence of the external cause; Y99.0 Civilian activity done for income or pay
CPT/HCPCS: 12001; 90715; 96372; 99283

== ENCOUNTER 2018-10-04 19:06 | Emergency (ER) | payer MEDICAID ==
[2018-10-04 19:50] LABS: URINE APPEARANCE CLOUDY; URINE BILIRUBIN NEGATIVE (NEGATIVE); URINE BLOOD LARGE (NEGATIVE); URINE COLOR YELLOW; URINE GLUCOSE (UA) NEGATIVE (NEGATIVE); URINE KETONE NEGATIVE (NEGATIVE); URINE LEUKOCYTE ESTERASE LARGE (NEGATIVE); URINE NITRITE NEGATIVE (NEGATIVE); URINE UROBILINOGEN 0.2 E.U./dL (0.20 - 1.00)
[2018-10-04] MEDS ORDERED: ACETAMINOPHEN 1,000 MG/100 ML BTL IVPB ONE (19:52)
[2018-10-04 19:55] LABS: HCG,QUALITATIVE URINE NEGATIVE (NEGATIVE); URINE BACTERIA 2+
[2018-10-04 20:02] LABS: BASO % 0.2 % (0-6); EOS % 0.2 % (0-6); HEMOGLOBIN 13.1 gm/dl (11.6-16.0); LYMPH % 7.4 % (16-45); MEAN CELL VOLUME 90.3 fl (81-97); MEAN CORPUSCULAR HEMOGLOBIN 28.9 pg (27-33); MEAN PLATELET VOLUME 10.8 fl (7.4-10.4); MONO % 4.2 % (0-9); PLATELET COUNT 297 K/uL (130-400); RED BLOOD COUNT 4.54 M/uL (3.80-5.40); RED CELL DISTRIBUTION WIDTH 16.5 % (11.5-14.5); WHITE BLOOD COUNT W/O DIFF 18.9 K/uL (4.2-12.2)
[2018-10-04] MEDS ORDERED: KETOROLAC 30 MG/ML VIAL IVP ONE (20:03)
[2018-10-04] MEDS ORDERED: 0.9 % SODIUM CHLORIDE 1,000 ML BAG IV ONE (20:04)
--- NOTE | 2018-10-04 20:07 | Emergency Department Record ---
History of Present Illness - General Chief Complaint: Abdominal Pain Stated Complaint: ABDOMINAL PAIN Time Seen by Provider: 10/04/18 19:55 Source: Patient Mode of Arrival: Ambulatory - History of Present Illness Initial Comments: The patient states she has had 2 days of vaginal bleeding which became heavier today dn associated with bilateral lower abdominal pain, nausea, dry heaves, and some radiation into the flanks. She has had a tubal ligation and is sexually active, abdirashid menopausal with her LMP 4-5 months ago and irregular. misc 4. Also has a history of kidney stones. MD Complaint: Abdominal pain Onset/Timin -: Days(s) Location: LLQ, RLQ Severity: Severe Severity scale (1-10): 10 Quality: Burning Consistency: Constant, Getting worse Improves With: Nothing Worsens With: Nothing - Related Data LMP (females 10-50): Current Patient : No Previous Rx's Medication Instructions Recorded Doxycycline Monohydrate 100 mg PO BID #20 capsule 10/04/18 Metronidazole [Flagyl] 500 mg PO TID #42 tablet 10/04/18 Naproxen Sodium [Anaprox Ds] 550 mg PO BID #20 tablet 10/04/18 Allergies Allergy/AdvReac Type Severity Reaction Status Date / Time aspirin AdvReac BRUISING, Verified 04/21/18 23:04 bloody noses Travel Screening - Travel/Exposure Within Last 30 Days Have you traveled within the last 30 days?: No Review of Systems Reviewed: No additional complaints except as noted below Constitutional: Reports: As per HPI. Denies: Chills, Fever, Malaise, Night sweats, Weakness, Weight change Eyes: Reports: As per HPI. Denies: Eye discharge, Eye pain, Photophobia, Vision change ENT: Reports: As per HPI. Denies: Congestion, Dental pain, Ear pain, Epistaxis , Hearing loss, Throat pain Respiratory: Reports: As per HPI. Denies: Cough, Dyspnea, Hemoptysis, Stridor, Wheezes Cardiovascular: Reports: As per HPI. Denies: Arrhythmia, Chest pain, Dyspnea on exertion, Edema, Murmurs, Orthopnea, Palpitations, Paroxysmal nocturnal dyspnea, Rheumatic Fever, Syncope Endocrine: Reports: As per HPI. Denies: Fatigue, Heat or cold intolerance, Polydipsia, Polyuria Gastrointestinal: Reports: As per HPI. Denies: Abdominal pain, Constipation, Diarrhea, Hematemesis, Hematochezia, Melena, Nausea, Vomiting Genitourinary: Reports: As per HPI. Denies: Abnormal menses, Discharge, Dyspareunia, Dysuria, Frequency, Hematuria, Incontinence, Retention, Urgency Musculoskeletal: Reports: As per HPI. Denies: Arthralgia, Back pain, Gout, Joint swelling, Myalgia, Neck pain Skin: Reports: As per HPI. Denies: Bruising, Change in color, Change in hair/ nails, Lesions, Pruritus, Rash Neurological: Reports: As per HPI. Denies: Abnormal gait, Confusion, Headache, Numbness, Paresthesias, Seizure, Tingling, Tremors, Vertigo, Weakness Psychiatric: Reports: As per HPI. Denies: Anxiety, Auditory hallucinations, Depression, Homicidal thoughts, Suicidal thoughts, Visual hallucinations Hematological/Lymphatic: Reports: As per HPI. Denies: Anemia, Blood Clots, Easy bleeding, Easy bruising, Swollen glands Past Medical History - SOCIAL HISTORY Smoking Status: Light tobacco smoker (<10/day) - RESPIRATORY Hx Respiratory Disorders: Yes Hx Asthma: Yes Hx Bronchitis: Yes - CARDIOVASCULAR Hx Cardio Disorders: No - NEURO Hx Neuro Disorders: No - GI Hx GI Disorders: No - Hx Genitourinary Disorders: Yes Hx Kidney Stones: Yes (stents placed and since removed) - ENDOCRINE Hx Endocrine Disorders: No - MUSCULOSKELETAL Hx Musculoskeletal Disorders: No - PSYCH Hx Psych Problems: Yes Hx Anxiety: Yes Hx Depression: Yes - HEMATOLOGY/ONCOLOGY Hx Hematology/Oncology Disorders: No Family Medical History Any Significant Family History?: No Family Hx Comment (NOT TO BE USED IN PLACE OF ITEMS BELOW): denies Physical Exam - General General Appearance: Alert, Oriented x3, Cooperative, Moderate distress (7-8/10 bilateral lower abdominal pain) - Head Head exam: Normal inspection - Eye Eye exam: Normal appearance, PERRL, EOMI. negative: Conjunctival injection Pupils: Normal accommodation - ENT ENT exam: Normal exam, Mucous membranes moist, Normal external ear exam, Normal orophraynx, TM's normal bilaterally Ear exam: Normal external inspection. negative: External canal tenderness Nasal Exam: Normal inspection. negative: Discharge, Sinus tenderness Mouth exam: Normal external inspection, Tongue normal Teeth exam: Normal inspection. negative: Dental caries Throat exam: Normal inspection. negative: Tonsillar erythema, Tonsillar exudate - Neck Neck exam: Normal inspection, Full ROM. negative: Lymphadenopathy, Meningismus , Tenderness - Respiratory Respiratory exam: Normal lung sounds bilaterally. negative: Respiratory distress - Cardiovascular Cardiovascular Exam: Regular rate, Normal rhythm, Normal heart sounds - GI/Abdominal GI/Abdominal exam: Soft, Normal bowel sounds, Tenderness (Bilateral lower abdominal tenderness on palpation). negative: Rebound, Rigid - Rectal Rectal exam: Deferred - exam: Deferred, Adnexal tenderness (L), Adnexal tenderness (R), cervical motion tenderness, Vaginal bleeding (moderate), Other (midline tenderness over uterus and bladder ) - Extremities Extremities exam: Normal inspection, Full ROM, Normal capillary refill. negative: Calf tenderness, Pedal edema, Tenderness - Back Back exam: Reports: Normal inspection, Full ROM. Denies: Muscle spasm, Rash noted, Tenderness - Neurological Neurological exam: Alert, CN II-XII intact, Normal gait, Oriented X3, Reflexes normal. negative: Motor sensory deficit - Psychiatric Psychiatric exam: Normal affect, Normal mood - Skin Skin exam: Dry, Intact, Normal color, Warm Course - Reevaluation(s) Reevaluation #1: Patient states she is in more pain again and is requesting something for it. Discussed CT results with Radiologist who states the appendix is normal and well visualized, ovaries are without mass and normal in size. Bladder is abnormal with wall thickening diffusely with surrounding fat stranding anteriorly and bilaterally. Suspect possible PID appearance. 10/04/18 21:46 Reevaluation #2: Patient prefers to go home and be treated with out patient oral antibiotics. She will return if she worsens in her condition. Patient went outside to smoke and make phone calls. Is feeling slightly better and is ready for DC. 10/04/18 23:14 Medical Decision Making - Management Options MDM Management: Additional Work-up Planned (e.g. ADM/Transfer/OP Study) - Data Complexity MDM Data: Labs Ordered and/or Reviewed, X-Ray Ordered and/or Reviewed (CT Abdomen Pelvis: Nl. appendix and ovaries. Diffuse bladder wall thickening with surroundinf fat stranding anteriorly and bilateral, no abscesses, suggestive of possible PID.) - Lab Data Result diagrams: 10/04/18 19:50 10/04/18 19:50 Lab Results 10/04/18 Range/Units Unknown Urine Color Yellow Urine Appearance Cloudy Urine pH 8.0 (5.0-8.0) Ur Specific [place] 1.020 (1.002-1.030) Urine Protein 30 mg/dl H (NEGATIVE) Urine Glucose (UA) Negative (NEGATIVE) Urine Ketones Negative (NEGATIVE) Urine Blood Large H (NEGATIVE) Urine Nitrite Negative (NEGATIVE) Urine Bilirubin Negative (NEGATIVE) Urine Urobilinogen 0.2 (0.20 - 1.00) E.U./dL Ur Leukocyte Esterase Large H (NEGATIVE) Disposition Disposition: Discharge Clinical Impression: PID (acute pelvic inflammatory disease), Vaginal bleeding Disposition: Home, Self-Care Reason For Transfer: Gynecology care Condition: (2) Stable Instructions: Abdominal Pain (ED), Pelvic Inflammatory Disease (ED), Chlamydia (ED) Additional Instructions: Take all antibiotics as directed until gone. Dpo not drink alcohol with Flagyl as it will make your ill and interact with the medication. Tylenol as directed as needed for pain. Anaprox as directed as needed for pain. Follow up with [facility] as instructed. Prescriptions: Doxycycline Monohydrate 100 mg PO BID #20 capsule Metronidazole [Flagyl] 500 mg PO TID #42 tablet Naproxen Sodium [Anaprox Ds] 550 mg PO BID #20 tablet Quality - Quality Measures Quality Measures: N/A - Blood Pressure Screening Does Patient Have Any of the Following: No Blood Pressure Classification: Pre-Hypertensive BP Reading Systolic Measurement: 121 Diastolic Measurement: 65 Screening for High Blood Pressure: < Normal BP, F/U Not Required > [G8783]
[2018-10-04 20:10] LABS: BLOOD UREA NITROGEN 10 mg/dL (6-20)
[2018-10-04 20:11] LABS: CREATININE 0.6 mg/dL (0.5-0.9); EST GLOMERULAR FILTRATION RATE > 60 mL/min
[2018-10-04 20:13] LABS: GLUCOSE,RANDOM 104 mg/dL (74-109)
[2018-10-04 20:30] LABS: ANISOCYTOSIS 1+; PLATELET ESTIMATE NORMAL (NORMAL); TOXIC GRANULATION 1+
[2018-10-04 20:46] LABS: URINE APPEARANCE CLEAR; URINE BILIRUBIN NEGATIVE (NEGATIVE); URINE BLOOD SMALL (NEGATIVE); URINE COLOR YELLOW; URINE GLUCOSE (UA) NEGATIVE (NEGATIVE); URINE KETONE TRACE (NEGATIVE); URINE LEUKOCYTE ESTERASE NEGATIVE (NEGATIVE); URINE NITRITE NEGATIVE (NEGATIVE); URINE PROTEIN NEGATIVE (NEGATIVE); URINE UROBILINOGEN 0.2 E.U./dL (0.20 - 1.00)
[2018-10-04 20:55] LABS: URINE EPITHELIAL CELLS NONE SEEN (FEW); URINE RBC 0 - 2 (NONE SEEN); URINE WBC NONE SEEN (0-2/hpf)
[2018-10-04] MEDS ORDERED: CEFTRIAXONE SODIUM 2 GM in 0.9 % SODIUM CHLORIDE 100ML 100 ML IVPB ONE (21:52)
[2018-10-04] MEDS ORDERED: AZITHROMYCIN 500 MG TABLET PO ONE (21:52)
[2018-10-04] MEDS ORDERED: HYDROMORPHONE HCL 2 MG/ML VIAL IVP ONE (21:54)
--- NOTE | 2018-10-06 08:29 | CT SCAN REPORT ---
EXAM: CT OF THE ABDOMEN AND PELVIS WITHOUT CONTRAST HISTORY: BURNING PAIN WITHIN THE LOWER ABDOMEN. PREVIOUS TUBAL LIGATION. TECHNIQUE: Routine CT images of the abdomen and pelvis were obtained without contrast. Comparison: 02/11/17. FINDINGS: The visualized lung bases are unremarkable. There is a 1.9 cm cyst dome right lobe of the liver. The liver is enlarged measuring 17 cm in mid clavicular line. The gallbladder is surgically absent. The pancreas, adrenals and kidneys have a normal noncontrast appearance. No renal or ureteral calculi or hydronephrosis. The bowel is normal in caliber. The appendix has a normal noncontrast appearance. No gastrointestinal inflammatory change. The uterus is present. There is bladder wall thickening and pericystic fat stranding suspicious for cystitis, correlate clinically. There is mild atherosclerotic calcification. The aorta is normal in caliber. No abdominal or pelvic lymphadenopathy. No free air or significant free fluid. No acute osseous abnormality. Mild sacroiliac joint degenerative changes. Mild lumbar spondylosis. IMPRESSION: 1. BLADDER WALL THICKENING WITH SURROUNDING PERICYSTIC INFLAMMATORY CHANGE SUSPICIOUS FOR CYSTITIS. PLEASE CORRELATE CLINICALLY. 2. NO RENAL OR URETERAL CALCULI OR SUGGESTION OF OBSTRUCTIVE UROPATHY. 3. HEPATOMEGALY. JOB NUMBER: [id number] [facility]
[2018-10-06 14:21] LABS: GC SPECIMEN TYPE Cervix
== END 2018-10-04 23:33 | disposition home or self-care (01) ==
LOC: ER 19:06
DX: N73.0 Acute parametritis and pelvic cellulitis (principal); N93.9 Abnormal uterine and vaginal bleeding, unspecified; R11.2 Nausea with vomiting, unspecified; R10.84 Generalized abdominal pain; F17.210 Nicotine dependence, cigarettes, uncomplicated; Z87.442 Personal history of urinary calculi
CPT/HCPCS: 99284 ×2; 96365; 96375; 96361; 80048; 81001; 81003; 81015; 81025; 85027; 74176; J1885; J1170

== ENCOUNTER 2018-12-13 22:30 | Emergency (ER) | payer MEDICAID ==
--- NOTE | 2018-12-13 22:51 | Emergency Department Record ---
History of Present Illness - General Chief complaint: ENT Stated complaint: FEVER,COUGH,NAUSEA,VOMITING Time Seen by Provider: 12/13/18 22:51 Source: Patient Mode of Arrival: Ambulatory Limitations: No limitations - History of Present Illness Initial comments: pt has productive green cough, sore throat. fever , sweats and chills for 5 days complaint: Sore throat, Other Onset/Timin -: Days(s) Location: Nose Consistency: Constant Associated Symptoms: Cough, Rhinorrhea, Sore throat - Related Data Previous Rx's Medication Instructions Recorded Azithromycin [Zithromax] 250 mg PO DAILY #4 tab 12/13/18 Allergies Allergy/AdvReac Type Severity Reaction Status Date / Time aspirin AdvReac BRUISING, Verified 04/21/18 23:04 bloody noses naproxen AdvReac bleeding Verified 12/13/18 22:33 Travel Screening - Travel/Exposure Within Last 30 Days Have you traveled within the last 30 days?: No - Travel Symptoms Symptom Screening: None Review of Systems Reviewed: No additional complaints except as noted below Constitutional: Reports: As per HPI, Chills, Fever. Denies: Malaise, Night sweats, Weakness, Weight change Eyes: Reports: As per HPI. Denies: Eye discharge, Eye pain, Photophobia, Vision change ENT: Reports: As per HPI, Congestion. Denies: Dental pain, Ear pain, Epistaxis , Hearing loss, Throat pain Respiratory: Reports: As per HPI, Cough. Denies: Dyspnea, Hemoptysis, Stridor, Wheezes Cardiovascular: Reports: As per HPI. Denies: Arrhythmia, Chest pain, Dyspnea on exertion, Edema, Murmurs, Orthopnea, Palpitations, Paroxysmal nocturnal dyspnea, Rheumatic Fever, Syncope Endocrine: Reports: As per HPI. Denies: Fatigue, Heat or cold intolerance, Polydipsia, Polyuria Gastrointestinal: Reports: As per HPI. Denies: Abdominal pain, Constipation, Diarrhea, Hematemesis, Hematochezia, Melena, Nausea, Vomiting Genitourinary: Reports: As per HPI. Denies: Abnormal menses, Discharge, Dyspareunia, Dysuria, Frequency, Hematuria, Incontinence, Retention, Urgency Musculoskeletal: Reports: As per HPI. Denies: Arthralgia, Back pain, Gout, Joint swelling, Myalgia, Neck pain Skin: Reports: As per HPI. Denies: Bruising, Change in color, Change in hair/ nails, Lesions, Pruritus, Rash Neurological: Reports: As per HPI. Denies: Abnormal gait, Confusion, Headache, Numbness, Paresthesias, Seizure, Tingling, Tremors, Vertigo, Weakness Psychiatric: Reports: As per HPI. Denies: Anxiety, Auditory hallucinations, Depression, Homicidal thoughts, Suicidal thoughts, Visual hallucinations Hematological/Lymphatic: Reports: As per HPI. Denies: Anemia, Blood Clots, Easy bleeding, Easy bruising, Swollen glands Past Medical History - SOCIAL HISTORY Smoking Status: Light tobacco smoker (<10/day) - RESPIRATORY Hx Respiratory Disorders: Yes Hx Asthma: Yes Hx Bronchitis: Yes - CARDIOVASCULAR Hx Cardio Disorders: No - NEURO Hx Neuro Disorders: No - GI Hx GI Disorders: No - Hx Genitourinary Disorders: Yes Hx Kidney Stones: Yes (stents placed and since removed) - ENDOCRINE Hx Endocrine Disorders: No - MUSCULOSKELETAL Hx Musculoskeletal Disorders: No - PSYCH Hx Psych Problems: Yes Hx Anxiety: Yes Hx Depression: Yes - HEMATOLOGY/ONCOLOGY Hx Hematology/Oncology Disorders: No Family Medical History Any Significant Family History?: Yes Family Hx Comment (NOT TO BE USED IN PLACE OF ITEMS BELOW): Grandmother w/ Parkinson's Physical Exam - General General Appearance: Alert, Oriented x3, Cooperative, Mild distress - Head Head exam: Normal inspection - Eye Eye exam: Normal appearance, PERRL, EOMI Pupils: Normal accommodation - ENT ENT exam: Normal exam, Mucous membranes moist, Normal external ear exam, Normal orophraynx Ear exam: Normal external inspection. negative: External canal tenderness Nasal Exam: Normal inspection. negative: Discharge, Sinus tenderness Mouth exam: Normal external inspection, Tongue normal Teeth exam: Normal inspection. negative: Dental caries Throat exam: Normal inspection. negative: Tonsillar erythema, Tonsillar exudate - Neck Neck exam: Normal inspection, Full ROM. negative: Tenderness - Respiratory Respiratory exam: Normal lung sounds bilaterally. negative: Respiratory distress - Cardiovascular Cardiovascular Exam: Regular rate, Normal rhythm, Normal heart sounds - GI/Abdominal GI/Abdominal exam: Soft, Normal bowel sounds. negative: Tenderness - Rectal Rectal exam: Deferred - exam: Deferred - Extremities Extremities exam: Normal inspection, Full ROM, Normal capillary refill. negative: Tenderness - Back Back exam: Reports: Normal inspection, Full ROM. Denies: Muscle spasm, Rash noted, Tenderness - Neurological Neurological exam: Alert, CN II-XII intact, Normal gait, Oriented X3 - Psychiatric Psychiatric exam: Normal affect, Normal mood - Skin Skin exam: Dry, Intact, Normal color, Warm Course Vital Signs 12/13/18 22:35 Temperature 98.5 F Pulse Rate [ 72 Pulse Ox Probe] Respiratory 24 Rate Blood Pressure 136/87 [Left Arm] Pulse Ox 98 Disposition Disposition: Discharge Clinical Impression: Bronchitis Disposition: Home, Self-Care Condition: (1) Good Instructions: Acute Bronchitis (ED) Additional Instructions: follow up with family doctor. return sooner if worse. push fluids. motrin for fever and aches Prescriptions: Azithromycin [Zithromax] 250 mg PO DAILY #4 tab Forms: Patient Portal Access Quality - Quality Measures Quality Measures: Adult Bronchitis (18-64yr) - Adult Bronchitis Quality Measure: Measure #116: Avoidance of ABX w/Adult Bronchitis Is patient being admitted: No Avoidance of ABX w/Bronchitis: Medical Reason for prescribing ABX [G9712] Medical Reason For Rx: Acute Pharyngitis, Bacterial infection - Blood Pressure Screening Does Patient Have Any of the Following: No Blood Pressure Classification: Pre-Hypertensive BP Reading Systolic Measurement: 136 Diastolic Measurement: 87 Screening for High Blood Pressure: < Pre-Hypertensive BP, F/U Documented > [ G8950] Pre-Hypertensive Follow-up Interventions: Follow-up with rescreen every year.
[2018-12-13 23:14] LABS: INFLUENZA A NEGATIVE (NEGATIVE); INFLUENZA B NEGATIVE (NEGATIVE)
[2018-12-13] MEDS: AZITHROMYCIN 500 MG TABLET PO ONE (23:35)
== END 2018-12-13 23:37 | disposition home or self-care (01) ==
LOC: ER 22:30
DX: J20.9 Acute bronchitis, unspecified (principal); F17.210 Nicotine dependence, cigarettes, uncomplicated
CPT/HCPCS: 71046; 87400; 99283

== ENCOUNTER 2019-04-16 05:52 | Emergency (ER) | payer MEDICAID ==
--- NOTE | 2019-04-16 06:11 | Emergency Department Record ---
History of Present Illness - General Chief Complaint: Fall Injury Stated Complaint: R/S KNEE PAIN/FALL Time Seen by Provider: 04/16/19 06:06 Source: Patient Mode of Arrival: Ambulatory Limitations: No limitations - History of Present Illness Initial Comments: 48 yo female presents to ED for evaluation of right sided knee pain symptoms that began following injury at home 2 nights ago. Patient reports that she twisted the knee while going upstairs to check on her children after hearing a loud noise upstairs. Patient reports weight bearing with pain, reports pain symptoms are isolated to the right medial knee. Patient denies pain over the ankle or hip region. MD Complaint: Fall Onset/Timin -: Days(s) When Fall Occurred: Other Fall Witnessed: No Place Fall Occurred: Home Loss of Consciousness: None Prolonged Down Time?: No Location - Extremities: Right: Knee Severity: Severe Severity scale (1-10): 10 Quality: Aching Associated Symptoms: Denies - [place] Coma Scale Eye Response: (4) Open spontaneously Motor Response: (6) Obeys commands Verbal Response: (5) Oriented [place] Total: 15 - Related Data Allergies Allergy/AdvReac Type Severity Reaction Status Date / Time aspirin AdvReac BRUISING, Unverified 03/29/19 12:49 bloody noses naproxen AdvReac bleeding Unverified 03/29/19 12:49 Travel Screening - Travel/Exposure Within Last 30 Days Have you traveled within the last 30 days?: No Review of Systems Constitutional: Denies: Chills, Fever, Malaise, Night sweats Eyes: Denies: Eye discharge, Eye pain ENT: Denies: Congestion, Epistaxis, Throat pain Respiratory: Denies: Cough, Dyspnea Cardiovascular: Denies: Chest pain, Dyspnea on exertion Endocrine: Denies: Fatigue, Heat or cold intolerance Gastrointestinal: Denies: Abdominal pain, Nausea, Vomiting Genitourinary: Denies: Incontinence, Retention Musculoskeletal: Reports: Arthralgia. Denies: Back pain, Gout, Joint swelling Skin: Denies: Bruising, Change in color Neurological: Denies: Abnormal gait, Confusion, Headache, Seizure Psychiatric: Denies: Anxiety Hematological/Lymphatic: Denies: Anemia, Blood Clots Past Medical History - SOCIAL HISTORY Smoking Status: Light tobacco smoker (<10/day) Alcohol Use: None Drug Use: None - RESPIRATORY Hx Respiratory Disorders: Yes Hx Asthma: Yes Hx Bronchitis: Yes - CARDIOVASCULAR Hx Cardio Disorders: No - NEURO Hx Neuro Disorders: No - GI Hx GI Disorders: No - Hx Genitourinary Disorders: Yes Hx Kidney Stones: Yes (stents placed and since removed) - ENDOCRINE Hx Endocrine Disorders: No - MUSCULOSKELETAL Hx Musculoskeletal Disorders: No - PSYCH Hx Psych Problems: Yes Hx Anxiety: Yes Hx Depression: Yes - HEMATOLOGY/ONCOLOGY Hx Hematology/Oncology Disorders: No Family Medical History Any Significant Family History?: Yes Family Hx Comment (NOT TO BE USED IN PLACE OF ITEMS BELOW): Grandmother w/Parkinson's Physical Exam - General General Appearance: Alert, Oriented x3, Cooperative, Mild distress Limitations: No limitations - Head Head exam: Atraumatic, Normocephalic, Normal inspection Head exam detail: negative: Abrasion, Contusion, Sabillon's sign, General tenderness, Hematoma, Laceration - Eye Eye exam: Normal appearance. negative: Conjunctival injection, Periorbital swelling, Periorbital tenderness, Scleral icterus - ENT Ear exam: negative: Auricular hematoma, Auricular trauma Nasal Exam: negative: Active bleeding, Discharge, Dried blood, Foreign body Mouth exam: negative: Drooling, Laceration, Muffled voice, Tongue elevation - Neck Neck exam: Normal inspection. negative: Meningismus, Tenderness - Respiratory Respiratory exam: Normal lung sounds bilaterally. negative: Rales, Respiratory distress, Rhonchi, Stridor - Cardiovascular Cardiovascular Exam: Regular rate, Normal rhythm, Normal heart sounds - GI/Abdominal GI/Abdominal exam: Soft. negative: Rebound, Rigid, Tenderness - Rectal Rectal exam: Deferred - exam: Deferred - Extremities Extremities exam: Tenderness (Mild TTP over the medial aspect of the knee, no effusion present, FROM actively on examination, strong DPP right.). negative: Calf tenderness, Pedal edema - Back Back exam: Denies: CVA tenderness (R), CVA tenderness (L) - Neurological Neurological exam: Alert, Normal gait, Oriented X3 - Psychiatric Psychiatric exam: Normal affect, Normal mood - Skin Skin exam: Normal color. negative: Abrasion Type of lesion: negative: abrasion Course Vital Signs 04/16/19 05:59 Temperature 97.7 F Pulse Rate [ 74 Left] Respiratory 18 Rate Blood Pressure 163/89 [Right Arm] Pulse Ox 96 - Reevaluation(s) Reevaluation #1: 04/16/19 06:24 Right knee: Negative for fracture Patient was updated on her radiograph results, no evidence for fracture or effusion on review of the patient's radiographs. Will place the patient in a knee immobilizer as needed for probable knee strain, appears stable for discharge at this time. Disposition Disposition: Discharge Clinical Impression: Strain of right knee Qualifiers: Encounter type: initial encounter Qualified Code(s): S86.911A - Strain of unspecified muscle(s) and tendon(s) at lower leg level, right leg, initial encounter Disposition: Home, Self-Care Condition: (2) Stable Instructions: Knee Pain (ED) Additional Instructions: Return to ED if your symptoms worsen or if you have any concerns. Tylenol as directed. Knee immobilizer as directed. Follow-up with your family doctor in 3-5 days as directed. Forms: Patient Portal Access Time of Disposition: 06:25 Quality - Quality Measures Quality Measures: N/A - Blood Pressure Screening Does Patient Have Any of the Following: No Blood Pressure Classification: Pre-Hypertensive BP Reading Systolic Measurement: 163 Diastolic Measurement: 89 Screening for High Blood Pressure: < Pre-Hypertensive BP, F/U Documented > [G8950] Pre-Hypertensive Follow-up Interventions: Referral to alternative/primary care provider.
== END 2019-04-16 06:36 | disposition home or self-care (01) ==
LOC: ER 05:52
DX: S86.911A Strain of unspecified muscle(s) and tendon(s) at lower leg level, right leg, initial encounter (principal); X50.1XXA Overexertion from prolonged static or awkward postures, initial encounter; Y92.008 Other place in unspecified non-institutional (private) residence as the place of occurrence of the external cause; F17.210 Nicotine dependence, cigarettes, uncomplicated
CPT/HCPCS: 99283